=== PATIENT | male | born 1965 | race American Indian/Alaskan Native ===

== ENCOUNTER 2018-03-26 10:17 | Emergency (ER) | payer MEDICAID ==
[2018-03-26 10:49] VITALS: BP 152/84; PULSE 69; RESP 16; TEMP 98.1; O2SAT 98
--- NOTE | 2018-03-26 12:20 | C.PDOC ---
History Of Present Illness 52 y/o male presents to the ER complaining of left ear discomfort which has gradually developed over the past 2 weeks. Pt describes the discomfort as " aching over Left ear, intermittent ringing, feels like water in my ear", associated intermittent Left sided headache. Pt admits, was seen by PMD who prescribed him abx Lovenox w/o relief. Pt has an appointment with an ENT in 4 days ( 03/30/18) but he decided to come to the ER today because of more discomfort over Left ear. Pt denies high fever, chills, denies worse headache of life, visual changes focal deficits, vertigo, dizziness, ear discharges, sore throat, neck pain, CP, SOB, denies any other active complaints. Ambulate to ED for evaluation, not in any apparent distress. Time Seen by Provider: 03/26/18 11:19 Chief Complaint (Nursing): ENT Problem History Per: Patient History/Exam Limitations: None Onset/Duration Of Symptoms: Days Current Symptoms Are (Timing): Still Present Severity: Moderate Past Medical History Reviewed: Historical Data, Nursing Documentation, Vital Signs Vital Signs: Last Vital Signs Temp 98.1 F 03/26/18 10:49 Pulse 69 03/26/18 10:49 Resp 16 03/26/18 10:49 BP 152/84 H 03/26/18 10:49 Pulse Ox 98 03/26/18 15:24 - Medical History PMH: HTN Other Surgeries: Hx of surgeries Family History: States: No Known Family Hx - Social History Hx Alcohol Use: No Hx Substance Use: No - Immunization History Hx Tetanus Toxoid Vaccination: No Hx Influenza Vaccination: No Hx Pneumococcal Vaccination: No Review Of Systems Except As Marked, All Systems Reviewed And Found Negative. Constitutional: Negative for: Fever, Chills Eyes: Negative for: Vision Change, Redness ENT: Positive for: Ear Pain (left ear discomfort). Negative for: Mouth Pain, Throat Pain, Throat Swelling Cardiovascular: Negative for: Chest Pain, Palpitations Respiratory: Negative for: Cough, Shortness of Breath, Sputum, Wheezing Gastrointestinal: Negative for: Nausea, Vomiting, Abdominal Pain, Diarrhea Genitourinary: Negative for: Dysuria, Incontinence Musculoskeletal: Negative for: Neck Pain, Back Pain Skin: Negative for: Rash Neurological: Positive for: Headache (intermittent headache). Negative for: Weakness, Numbness, Altered Mental Status, Dizziness Physical Exam - Physical Exam Appears: Well, Non-toxic, No Acute Distress Skin: Normal Color, Warm, No Rash, No Ecchymosis Head: Normacephalic Eye(s): bilateral: PERRL Ear(s): Bilateral: Normal (no mastoid tenderness B/L) Nose: No Flaring, No Discharge, No Deformity Oral Mucosa: Moist Throat: No Erythema, No Drooling Neck: Trachea Midline, Supple, Other ((-) meningeal sign) Chest: Symmetrical Cardiovascular: Rhythm Regular Respiratory: No Decreased Breath Sounds, No Accessory Muscle Use, No Rales, No Rhonchi, No Wheezing Gastrointestinal/Abdominal: Soft, No Tenderness, No Distention, No Guarding Back: No CVA Tenderness, No Vertebral Tenderness Extremity: Normal ROM, No Deformity, No Swelling Neurological/Psych: Oriented x3, Normal Speech, Normal Motor, Normal Sensation, Normal Reflexes ED Course And Treatment O2 Sat by Pulse Oximetry: 98 (RA) Pulse Ox Interpretation: Normal - CT Scan/US CT head w/o contrast Other Rad Studies (CT/US): Radiology Report Reviewed CT/US Interpretation: IMPRESSION: No acute intracranial hemorrhage. Large mucous retention cyst left maxillary antrum. Mastoid air complexes and middle ear canals unremarkable. Progress Note: CT- Head ordered. Patient given Antivert PO. On re-evaluation, pt is afebrile, hemodynamicaly stable. Non-toxic. Ambulatory in ED with stable gait. ENT: (-) acute findings. uvula midline, no edema. neck: SUpple, ( -) meningeal sign. Lungs: CTA B/L, BS equal B/L. Abd: benign, (-) guarding, (- ) rebound. back: (-) CVA tenderness. Neurologicaly intact. CT head results review and appears normal. Pt has clinical findings c/w Left earache r/o labyrintitis. Pt advised and ref. to [facility] ENT as scheduled for further evaluation and tx as need. return if any new changes. Disposition Counseled Patient/Family Regarding: Studies Performed, Diagnosis, Need For Followup - Disposition Referrals: Jg Chang MD [Staff Provider] - Disposition: HOME/ ROUTINE Disposition Time: 13:13 Condition: STABLE Additional Instructions: Follow up with PMD, ENT in 2 days for re-evaluation. return to ED if any worsening or new changes. 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 - Scribe Statement The provider has reviewed the documentation as recorded by the Scribe Jose Nicholas Provider Attestation All medical record entries made by the Scribe were at my direction and personally dictated by me. I have reviewed the chart and agree that the record accurately reflects my personal performance of the history, physical exam, medical decision making, and the department course for this patient. I have also personally directed, reviewed, and agree with the discharge instructions and disposition.
--- NOTE | 2018-03-26 13:30 | CT ---
PROCEDURE: CT HEAD WITHOUT CONTRAST. HISTORY: Left earache COMPARISON: None available. TECHNIQUE: Axial computed tomography images were obtained through the head/brain without intravenous contrast. Radiation dose: Total exam DLP = 1030.8 mGy-cm. This CT exam was performed using one or more of the following dose reduction techniques: Automated exposure control, adjustment of the mA and/or kV according to patient size, and/or use of iterative reconstruction technique. FINDINGS: HEMORRHAGE: No acute parenchymal, subarachnoid or extra-axial hemorrhage. BRAIN: No evidence of large acute infarct. No obvious parenchymal nor extra-axial mass or collection seen on this noncontrast study. VENTRICLES: No obstructive hydrocephalus however there is mild asymmetry of the lateral ventricles left-sided which is larger than the right felt to represent an anatomic variation. There is a small slightly hyperdense focus within the left foramen of [place]ro that most likely represents extension of choroid plexus from 3rd ventricle CALVARIUM: No acute calvarial fractures. PARANASAL SINUSES: Large mucous retention cyst seen in the left maxillary antrum. MASTOID AIR CELLS: The mastoid air complexes are well-developed and currently well-aerated. The canals unremarkable. OTHER FINDINGS: None. IMPRESSION: No acute intracranial hemorrhage. Large mucous retention cyst left maxillary antrum. Mastoid air complexes and middle ear canals unremarkable.
== END 2018-03-26 14:02 | disposition home or self-care (01) ==
LOC: C.ER 10:17
DX: H92.02 Otalgia, left ear (principal)

== ENCOUNTER 2018-08-13 16:38 | Emergency (ER) | payer MEDICAID ==
[2018-08-13 16:52] VITALS: BP 117/72; PULSE 81; RESP 18; TEMP 98.4; O2SAT 100
--- NOTE | 2018-08-13 17:58 | C.PDOC ---
History Of Present Illness 52 year old male presents to the ER with a complaint of headache, chest congestion, and cough for the past week. Patient saw his PMD who started him on some medication, however, symptoms persist. Patient also reports exacerbation of his chronic lower back pain after doing heavy lifting at work. Denies fever, chill, nausea, vomiting, weakness, numbness, or incontinence. Time Seen by Provider: 08/13/18 16:57 Chief Complaint (Nursing): Cough, Cold, Congestion History Per: Patient History/Exam Limitations: no limitations Onset/Duration Of Symptoms: Days ( ) Current Symptoms Are (Timing): Still Present Pain Scale Rating Of: 6 Context: with movement Location: lower back Quality: achy Recent travel outside of the [place]: No Past Medical History Reviewed: Historical Data, Nursing Documentation, Vital Signs Vital Signs: Last Vital Signs Temp 98.4 F 08/13/18 16:50 Pulse 81 08/13/18 16:50 Resp 18 08/13/18 16:50 BP 117/72 08/13/18 16:50 Pulse Ox 100 08/13/18 18:30 - Medical History PMH: HTN Family History: States: Unknown Family Hx - Social History Hx Alcohol Use: Yes Hx Substance Use: No - Immunization History Hx Tetanus Toxoid Vaccination: No Hx Influenza Vaccination: No Hx Pneumococcal Vaccination: No Review Of Systems Constitutional: Negative for: Fever, Chills Eyes: Negative for: Pain Cardiovascular: Negative for: Chest Pain Respiratory: Positive for: Cough, Other (Chest congestion) Gastrointestinal: Negative for: Nausea, Vomiting Genitourinary: Negative for: Dysuria, Incontinence, Hematuria Musculoskeletal: Positive for: Back Pain Neurological: Positive for: Headache. Negative for: Weakness, Numbness Physical Exam - Physical Exam Appears: Non-toxic Skin: Normal Color, Warm, Dry, No Rash Head: Atraumatic, Normacephalic Eye(s): bilateral: Normal Inspection Ear(s): Bilateral: Normal Nose: Normal Oral Mucosa: Moist Throat: Normal, No Erythema, No Exudate Neck: Normal, Supple Chest: Symmetrical, No Tenderness Cardiovascular: Rhythm Regular, No Friction Rub, No Murmur Respiratory: Normal Breath Sounds, No Rales, No Rhonchi, No Wheezing Gastrointestinal/Abdominal: Soft, No Tenderness Back: No CVA Tenderness, No Vertebral Tenderness, No Paraspinal Tenderness Extremity: Normal ROM (x4), No Swelling Neurological/Psych: Oriented x3, Normal Speech, Normal Motor, Normal Sensation Gait: Steady ED Course And Treatment O2 Sat by Pulse Oximetry: 100 (room air) Pulse Ox Interpretation: Normal - Radiology CXR: Interpreted by Me, Viewed By Me CXR Interpretation: Yes: No Acute Disease. No: Infiltrates - Other Rad LS Spine x-ray X-Ray: Interpreted by Me, Viewed By Me Interpretation: No acute fractures or dislocations. Medical Decision Making Medical Decision Making: CXR and LS spine x-ray ordered, results were negative. Naproxen and prednisone administered. Patient reports improvement of symptoms, he is resting comfortably in the ER in no acute respiratory distress, vitals are stable, will discharge home with Rx and instructions to follow up with PMD. Disposition - Disposition Referrals: Alex Campbell MD [Medical Doctor] - Disposition: HOME/ ROUTINE Disposition Time: 18:23 Condition: GOOD Additional Instructions: Follow up with the medical doctor within 1-2 days. Return if worsened. Prescriptions: Loratadine [Claritin] 10 mg PO DAILY #10 tab Naproxen [Naprosyn] 500 mg PO BID #20 tab predniSONE [Prednisone] 10 mg PO BID #10 tab Instructions: Low Back Pain in Adults, Acute Bronchitis Forms: [facility] (Indonesian), Work Excuse - Clinical Impression Clinical Impression: Bronchitis, Low back pain - PA / WHITEPRINTING MACHINE OPERATOR / Resident Statement MD/DO has reviewed & agrees with the documentation as recorded. - Scribe Statement The provider has reviewed the documentation as recorded by the Scribe Suresh Pike All medical record entries made by the Scribe were at my direction and personally dictated by me. I have reviewed the chart and agree that the record accurately reflects my personal performance of the history, physical exam, medical decision making, and the department course for this patient. I have also personally directed, reviewed, and agree with the discharge instructions and disposition.
--- NOTE | 2018-08-13 17:59 | RAD ---
Date of service: 08/13/2018 HISTORY: R/O INFILTRATE COMPARISON: No prior. TECHNIQUE: Chest PA and lateral FINDINGS: LUNGS: No active pulmonary disease. PLEURA: No significant pleural effusion identified. No pneumothorax apparent. CARDIOVASCULAR: Normal. OSSEOUS STRUCTURES: No significant abnormalities. VISUALIZED UPPER ABDOMEN: Normal. OTHER FINDINGS: None. IMPRESSION: No active disease.
[2018-08-13] MEDS ORDERED: Naproxen 550 mg Tab PO STA (18:03)
[2018-08-13] MEDS ORDERED: Naproxen 550 mg Tab PO ONE (18:09)
--- NOTE | 2018-08-13 18:22 | C.PDOC ---
Time Seen by Provider: 08/13/18 16:57 Chief Complaint (Nursing): Cough, Cold, Congestion Past Medical History Vital Signs: Last Vital Signs Temp 98.4 F 08/13/18 16:50 Pulse 81 08/13/18 16:50 Resp 18 08/13/18 16:50 BP 117/72 08/13/18 16:50 Pulse Ox 100 08/13/18 18:19 - Medical History PMH: HTN Family History: States: Unknown Family Hx - Social History Hx Alcohol Use: Yes Hx Substance Use: No - Immunization History Hx Tetanus Toxoid Vaccination: No Hx Influenza Vaccination: No Hx Pneumococcal Vaccination: No ED Course And Treatment O2 Sat by Pulse Oximetry: 100 Disposition - Disposition Forms: [employer] (Cymro)
--- NOTE | 2018-08-13 18:38 | RAD ---
Date of service: 08/13/2018 PROCEDURE: Radiographs of the Lumbar Spine. HISTORY: BACK PAIN COMPARISON: None available. FINDINGS: BONES: Alignment appears satisfactory. No listhesis. No acute displaced fracture identified. DISC SPACES: Unremarkable. OTHER FINDINGS: None. IMPRESSION: No acute displaced fracture or subluxation identified.
== END 2018-08-13 18:39 | disposition home or self-care (01) ==
LOC: C.ER 16:38
DX: J40 Bronchitis, not specified as acute or chronic (principal); M54.5 Low back pain; I10 Essential (primary) hypertension